=== PATIENT | male | born 2000 | race Hispanic/Latino ===

== ENCOUNTER 2022-12-23 19:13 | Emergency (ER) | payer OTHER ==
[2022-12-23] MEDS ORDERED: PREDNISONE50 MG PO (21:29)
[2022-12-24 05:45] VITALS: BP 124/69
== END 2022-12-23 21:39 | disposition home or self-care (01) | DRG 607 ==
LOC: ED 19:13
DX: S00.86XA Insect bite (nonvenomous) of other part of head, initial encounter (principal); W57.XXXA Bitten or stung by nonvenomous insect and other nonvenomous arthropods, initial encounter